=== PATIENT | male | born 1985 | race Caucasian/White ===

== ENCOUNTER 2021-06-23 12:09 | Emergency (ER) | payer OTHER, BC ==
--- NOTE | 2021-06-23 14:41 | XR ---
EXAMINATION TYPE: XR chest 2V DATE OF EXAM: 06/23/2021 COMPARISON: NONE TECHNIQUE: PA and lateral views submitted. HISTORY: Vomiting FINDINGS: The lungs are clear and there is no pneumothorax, pleural effusion, or focal pneumonia. Heart size normal. No overt failure. IMPRESSION: 1. No acute process.
[2021-06-23 16:03] VITALS: RESP 18
[2021-06-23] MEDS ORDERED: ONDANSETRON ODT 4 MG TAB PO STA (16:23)
--- NOTE | 2021-06-23 16:40 | ED ---
General Adult HPI - General Chief complaint: Upper Respiratory Infection Stated complaint: congestion, cough Time Seen by Provider: 06/23/21 16:07 Source: patient, RN notes reviewed Mode of arrival: ambulatory Limitations: no limitations - History of Present Illness Initial comments: 36-year-old male presents to the emergency Department with complaints of facial pain, sinus pressure, and nasal congestion for the past 3-4 weeks. Patient states he took his 's leftover penicillin today along with Mucinex, Naprosyn, and Tylenol. Reports developing nausea and vomiting. States he also has dizziness and facial discomfort when leaning forward. Denies fever, chills, sore throat, chest pain, cough, shortness of breath, abdominal pain, diarrhea, constipation, dysuria, hematuria. - Related Data Home Medications Medication Instructions Recorded Confirmed Zolpidem [Ambien] 10 mg PO HS PRN 06/23/21 06/23/21 guaiFENesin [Mucinex] 600 mg PO Q12H PRN 06/23/21 06/23/21 Previous Rx's Medication Instructions Recorded Azithromycin [Zithromax] 500 mg PO DAILY 2 Days #2 tab 06/23/21 Fluticasone Nasal Mousie [Flonase 2 spr EA NOSTRIL DAILY 30 Days #16 06/23/21 Nasal Mousie] gm Ondansetron Odt [Zofran Odt] 4 mg PO Q8HR PRN #10 tab 06/23/21 Allergies Allergy/AdvReac Type Severity Reaction Status Date / Time No Known Allergies Allergy Verified 06/23/21 16:41 Review of Systems ROS Statement: Those systems with pertinent positive or pertinent negative responses have been documented in the HPI. ROS Other: All systems not noted in ROS Statement are negative. Past Medical History Past Medical History: No Reported History History of Any Multi-Drug Resistant Organisms: None Reported Past Surgical History: No Surgical Hx Reported Past Psychological History: Anxiety Smoking Status: Never smoker Past Alcohol Use History: Occasional Past Drug Use History: None Reported General Exam Limitations: no limitations General appearance: alert, other (Well-developed, well-nourished female who appears moderately uncomfortable. Initial temperature 97.0, pulse 75, respirations 20, blood pressure 167/110, pulse ox 100% on room air.) Head exam: Present: atraumatic, normocephalic, normal inspection Eye exam: Present: normal appearance, PERRL, EOMI. Absent: scleral icterus, conjunctival injection, periorbital swelling ENT exam: Present: normal oropharynx, mucous membranes moist, TM's normal bilaterally, other (Left-sided facial tenderness upon palpation of the frontal and maxillary sinuses. Nasal passages patent though erythematous.) Expanded Mouth exam: Present: normal external inspection Throat exam: normal inspection Neck exam: Present: normal inspection, full ROM. Absent: tenderness, meningismus, lymphadenopathy Respiratory exam: Present: normal lung sounds bilaterally. Absent: respiratory distress, wheezes, rales, rhonchi, stridor Cardiovascular Exam: Present: regular rate, normal rhythm, normal heart sounds. Absent: systolic murmur, diastolic murmur, rubs, gallop, clicks GI/Abdominal exam: Present: soft, normal bowel sounds. Absent: distended, tenderness, guarding, rebound, rigid Neurological exam: Present: alert, oriented X3, CN II-XII intact Psychiatric exam: Present: anxious Skin exam: Present: warm, dry, intact, normal color Course Vital Signs 06/23/21 06/23/21 06/23/21 12:11 16:03 18:27 Temperature 97.0 F L 97.6 F Pulse Rate 75 70 93 Respiratory 20 18 18 Rate Blood Pressure 167/110 152/88 141/92 O2 Sat by Pulse 100 100 100 Oximetry - Reevaluation(s) Reevaluation #1: 06/23/21 17:42 Tolerating oral intake without any nausea or vomiting. Medical Decision Making - Medical Decision Making 36-year-old male with no significant past medical history presents to the emergency department for evaluation of facial pain, sinus pressure, nasal congestion. Upon exam, patient appears to be feeling poorly and is holding an emesis basin. Physical exam findings are significant for left frontal sinus and maxillary sinus tenderness upon palpation. Patient endorses increased discomfort and dizziness when leaning forward. Suspect symptoms are related to sinus infection, however due to the episode of nausea and vomiting, patient was Covid test which was negative. Chest x-ray shows no acute process. He will be prescribed an antibiotic as his symptoms have persisted beyond 3-4 week window. Patient will also be instructed on use of inhaler, humidified air, and decongestant. Encouraged to follow up with his PCP for a recheck. Return parameters were discussed in detail. Patient verbalizes understanding and agrees with this plan. This patient's care was discussed with my attending . - Lab Data Lab Results 06/23/21 Range/Units 12:20 Coronavirus (PCR) Not Detected (Not Detectd) - Radiology Data Radiology results: report reviewed, image reviewed Two-view chest x-ray was obtained. Report was reviewed in its entirety. Impression per Dr. Jorge is no acute process. Disposition Clinical Impression: Sinusitis, Nausea & vomiting Disposition: HOME SELF-CARE Condition: Stable Instructions (If sedation given, give patient instructions): Sinusitis (ED), Acute Nausea and Vomiting (ED) Additional Instructions: Nasal spray will help reduce inflammation. Use humidifier or vaporizer to humidify air. May apply warm compress to face. Take antibiotic as prescribed. May take Zofran if needed for nausea. Follow-up with your PCP if symptoms persist. Return to the emergency department with any new, worsening, or concerning symptoms. Prescriptions: Fluticasone Nasal Mousie [Flonase Nasal Mousie] 2 spr EA NOSTRIL DAILY 30 Days #16 gm Azithromycin [Zithromax] 500 mg PO DAILY 2 Days #2 tab Ondansetron Odt [Zofran Odt] 4 mg PO Q8HR PRN #10 tab PRN Reason: Nausea Is patient prescribed a controlled substance at d/c from ED?: No Referrals: [facility],Clinic [Primary Care Provider] - 1-2 days Time of Disposition: 18:19
[2021-06-23] MEDS ORDERED: AZITHROMYCIN 500 MG TAB PO STA (17:41)
[2021-06-23 18:29] VITALS: BP 141/92; PULSE 93; TEMP 97.6
== END 2021-06-23 18:27 | disposition home or self-care (01) ==
LOC: EC 12:09
DX: J01.90 Acute sinusitis, unspecified (principal); R11.2 Nausea with vomiting, unspecified; F41.9 Anxiety disorder, unspecified; Z20.822 Contact with and (suspected) exposure to COVID-19
CPT/HCPCS: 71046; 87635; 99283